=== PATIENT | male | born 1995 | race African-American/Black ===

== ENCOUNTER 2018-10-08 16:04 | Emergency (ER) | payer BC ==
--- NOTE | 2018-10-08 16:23 | PDOC ---
Rapid Medical Evaluation Time Seen by Provider: 10/08/18 16:22 Medical Evaluation: Allergies Allergy/AdvReac Type Severity Reaction Status Date / Time No Known Allergies Allergy Verified 10/08/18 16:22 10/08/18 16:22 Chief complaint: Abdominal pain, SOB, chest tightness, lightheaded/dizzy Pertinent physical exam findings: Alert, oriented. RRR, S1/S2, no murmurs. Lungs CTAB. I have ordered the following: EKG, CXR. Patient will proceed to the ED for further evaluation. 10/08/18 16:25 Discharge Disposition - Diagnosis Chest pain - Referrals - Patient Instructions - Post Discharge Activity
[2018-10-08 16:26] VITALS: BP 137/84; PULSE 87; TEMP 98.2; BMI 28.4
--- NOTE | 2018-10-08 19:35 | PDOC ---
History of Present Illness - General Chief Complaint: Pain Stated Complaint: ABDOMINAL PAIN/SHORTNESS OF BREATH Time Seen by Provider: 10/08/18 16:22 History Source: Patient Exam Limitations: No Limitations - History of Present Illness Initial Comments: 10/08/18 19:31 HISTORY OF PRESENT ILLNESS: This is a 23-year-old male past medical history of vertigo or presents emergency department for evaluation of intermittent room spinning dizziness, decreased concentration and intermittent chest pain for the past one month. Patient has been seen and evaluated by a neurologist at [facility] who is been treating him for vertigo. Reports the dizziness is intermittent and is mildly relieved with meclizine. Reports after having Diana procedure performed symptoms subsided for approximately one week and then returned spontaneously. Patient reports he has a follow-up appointment with his neurologist in 2 weeks. No recent travel or sick contacts. PAST MEDICAL HISTORY:Vertigo SURGICAL HISTORY: Denies ALLERGIES: No known drug allergies REVIEW OF SYSTEMS General/Constitutional: Denies fever or chills. Denies weakness, weight change. HEENT: Denies change in vision. Denies ear pain or discharge. Denies sore throat. Cardiovascular: Diffuse chest pain. Denies shortness of breath. Respiratory: Denies cough, wheezing, or hemoptysis. Gastrointestinal: Denies nausea, vomiting, diarrhea or constipation. Denies rectal bleeding. Genitourinary: Denies dysuria, frequency, or change in urination. Musculoskeletal: Denies joint or muscle swelling or pain. Denies neck or back pain. Skin and breasts: Denies rash or easy bruising. Neurologic: Denies headache, loss of consciousness, or loss of sensation. (+) vertigo Psychiatric: Denies depression or anxiety. Decreased concentration. Endocrine: Denies increased thirst. Denies abnormal weight change. Hematologic/Lymphatic: Denies anemia, easy bleeding, or history of blood clots. Allergic/Immunologic: Denies hives or skin allergy. Denies latex allergy. PHYSICAL EXAM General Appearance: Well-appearing, appropriately dressed. No apparent distress , no intoxication. HEENT: EOMI, PERRLA, normal ENT inspection, normal voice, TMs normal, pharynx normal. No conjunctival pallor. No photophobia, scleral icterus. Neck: Supple. Trachea midline. No tenderness, rigidity, carotid bruit, stridor , lymphadenopathy, or thyromegaly. Respiratory/Chest: Lungs CTAB. No shortness of breath, chest tenderness, respiratory distress, accessory muscle use. No crackles, rales, rhonchi, stridor , wheezing, dullness Cardiovascular: RRR. S1, S2. No JVD, murmur, bradycardia, tachycardia. Vascular Pulses: Dorsalis-Pedis (R): 2+, Dorsalis-Pedis (L): 2+ Gastrointestinal/Abdominal: Normal bowel sounds. Abdomen soft, non-distended. No tenderness or rebound tenderness. No organomegaly, pulsatile mass, guarding, hernia, hepatomegaly, splenomegaly. Lymphatic: No adenopathy, tenderness. Musculoskeletal/Extremities: Normal inspection. FROM of all extremities, normal capillary refill. Pelvis Stable. No CVA tenderness. No tenderness to extremities, pedal edema, swelling, erythema or deformity. Integumentary: Appropriate color, dry, warm. No cyanosis, erythema, jaundice or rash Neurologic: licensed final expense agents II-XII intact. Fully oriented, alert. Appropriate mood/affect. Motor strength 5/5. No appreciable EOM palsy, facial droop or sensory deficit. Past History - Past Medical History Allergies/Adverse Reactions: Allergies Allergy/AdvReac Type Severity Reaction Status Date / Time No Known Allergies Allergy Verified 10/08/18 16:22 Home Medications: Ambulatory Orders NK [No Known Home Medication] 10/08/18 - Suicide/Smoking/Psychosocial Hx Smoking History: Never smoked *Physical Exam - Vital Signs Last Vital Signs Temp Pulse Resp BP Pulse Ox 98.2 F 87 18 137/84 99 10/08/18 16:23 10/08/18 16:23 10/08/18 16:23 10/08/18 16:23 10/08/18 16:23 Moderate Sedation - Procedure Monitoring Vital Signs: Procedure Monitoring Vital Signs Temperature 98.2 F 10/08/18 16:23 Pulse Rate 87 10/08/18 16:23 Respiratory Rate 18 10/08/18 16:23 Blood Pressure 137/84 10/08/18 16:23 O2 Sat by Pulse Oximetry (%) 99 10/08/18 16:23 ED Treatment Course - LABORATORY CBC & Chemistry Diagram: 10/08/18 19:50 10/08/18 19:50 Medical Decision Making - Medical Decision Making 10/08/18 19:35 A/P: 23-year-old male with history of vertigo presents dizziness, lack of concentration, intermittent chest pain Chest pain resolved during exam. Neurologic exam is within normal limits Labs, chest x-ray, EKG, TSH, reassess 10/08/18 20:58 Laboratory testing is unremarkable with a troponin of less than 0.02 and a TSH of 1.39. EKG sinus rhythm with rate of 81. Normal intervals noted. No ischemic changes present. Chest x-rays read by Dr. Trotter: No acute chest pathology. I will discharge the patient home to follow-up with his neurologist as previously scheduled. I discussed the physical exam findings, ancillary test results and final diagnoses with the patient. I answered all of the patient's questions. The patient was satisfied with the care received and felt comfortable with the discharge plan and treatment plan. The patient will call their primary care physician within 24 hours to arrange follow-up and will return to the Emergency Department with any new, persistent or worsening symptoms. *DC/Admit/Observation/Transfer Diagnosis at time of Disposition: Chest pain Qualifiers: Chest pain type: other chest pain Qualified Code(s): R07.89 - Other chest pain - Discharge Dispostion Disposition: HOME Condition at time of disposition: Stable Decision to Admit order: No - Referrals Referrals: Genesis Slaughter [Primary Care Provider] - - Patient Instructions Additional Instructions: Take Tylenol or Motrin as needed for pain. Laboratory testing was normal today. Your chest x-ray was normal today. Your EKG was unremarkable. Keep her previously scheduled appointment with your neurologist for further evaluation. Return to the emergency department for any concerns. - Post Discharge Activity
[2018-10-08 20:02] LABS: EOS % 1.4 % (0-4.5); HEMATOCRIT 47.8 % (35.4-49); HEMOGLOBIN 16.9 GM/dL (11.7-16.9); LYMPH % 35.1 % (8-40); MCH 31.7 pg (25.7-33.7); MCHC 35.4 g/dl (32.0-35.9); MEAN CELL VOLUME 89.5 fl (80-96); MEAN PLT VOLUME 8.6 fl (7.5-11.1); MONO % 6.9 % (3.8-10.2); NEUT % 55.6 % (42.8-82.8); PLATELET COUNT 223 K/MM3 (134-434); RBC 5.34 M/mm3 (4.00-5.60); RDW 13.6 % (11.9-15.9); WHITE BLOOD COUNT 9.2 K/mm3 (4.0-10.0)
[2018-10-08 20:45] LABS: ALBUMIN 4.4 g/dl (3.4-5.0); ALK PHOS 112 U/L (45-117); ANION GAP 8 MMOL/L (8-16); BILIRUBIN,TOTAL 0.4 mg/dL (0.2-1); BLOOD UREA NITROGEN 16 mg/dL (7-18); CALCIUM 8.7 mg/dL (8.5-10.1); CHLORIDE 104 mmol/L (98-107); CO2 27 mmol/L (21-32); CREATININE 1.3 mg/dL (0.55-1.3); GLUCOSE,RANDOM 86 mg/dL (74-106); POTASSIUM 4.7 mmol/L (3.5-5.1); SGOT/AST 21 U/L (15-37); SGPT/ALT 30 U/L (13-61); SODIUM 138 mmol/L (136-145); TOT PROT 8.2 g/dl (6.4-8.2)
--- NOTE | 2018-10-09 11:55 | EKG ---
Test Reason : Blood Pressure : / mmHG Vent. Rate : 081 BPM Atrial Rate : 081 BPM P-R Int : 156 ms QRS Dur : 072 ms QT Int : 340 ms P-R-T Axes : 074 104 044 degrees QTc Int : 394 ms NORMAL SINUS RHYTHM POSSIBLE RIGHT VENTRICULAR HYPERTROPHY ABNORMAL ECG NO PREVIOUS ECGS AVAILABLE Confirmed by JAIRON PERDOMO, KELLY ([id number]) on 10/09/2018 11:55:24 AM Referred By: Confirmed By:KELLY DE LA O MD
== END 2018-10-08 21:11 | disposition home or self-care (01) ==
LOC: JER 16:04
DX: R07.89 Other chest pain (principal)
CPT/HCPCS: 36415; 71046-TC-FY; 80053; 82550; 82553; 84443; 84484; 85025; 93005; 93010; 99282-25